=== PATIENT | male | born 1970 | race Caucasian/White ===

== ENCOUNTER 2016-05-21 10:51 | Emergency (ER) | payer BC, OTHER ==
[2016-05-21 10:59] VITALS: BP 140/91; PULSE 76; TEMP 97.8; BMI 30.7
[2016-05-21] MEDS ORDERED: ALBUTEROL SO4 0.083% IH SOL 2.5 MG/3 ML VIAL.NEB. NEB ONE ×2 (12:17→12:18)
--- NOTE | 2016-05-21 12:40 | PDOC ---
History of Present Illness - General Chief Complaint: Respiratory Stated Complaint: cough/sore throat Time Seen by Provider: 05/21/16 11:59 History Source: Patient, Primary Care Provider Exam Limitations: No Limitations - History of Present Illness Initial Comments: 05/21/16 12:35 CC cough and congestion with fever x 4 days Timing/Duration: denies: just prior to arrival Severity: denies: mild Possible Cause: Yes: allergen exposure, irritant gases exposure. No: no prior episodes Past History - Past Medical History Allergies/Adverse Reactions: Allergies Allergy/AdvReac Type Severity Reaction Status Date / Time No Known Allergies Allergy Verified 05/21/16 10:55 Home Medications: Ambulatory Orders Unobtainable Home Med List 0 dose .ROUTE UTDICT 01/28/12 Clonazepam [Klonopin] 1 mg PO BID 03/19/12 Enoxaparin [Lovenox -] 40 mg SQ DAILY 03/19/12 Oxycodone HCl/Acetaminophen [Percocet 10-325 mg Tablet] 1 - 2 tab PO Q4H Ibuprofen [Motrin -] 600 mg PO TID #21 tablet 03/20/13 Oxycodone HCl/Acetaminophen [Percocet 5-325 mg Tablet -] 1 - 2 tab PO Q6H #14 tablet 03/20/13 HTN: Yes Hypercholesterolemia: Yes - Immunization History Immunization Up to Date: Yes - Psycho/Social/Smoking Cessation Hx Anxiety: No Suicidal Ideation: No Smoking Status: No Smoking History: Former smoker Have you smoked in the past 12 months: No Number of Cigarettes Smoked Daily: 0 Cigars Per Day: 0 Information on smoking cessation initiated: No Hx Alcohol Use: Yes Substance Use Type: None Respiratory Specific PMHX - Complaint Specific PMHX Angina: No Pulmonary Embolus: No Review of Systems - Review of Systems Constitutional: Yes: Fever, Malaise. No: Chills HEENTM: Yes: Nose Congestion, Throat Swelling Respiratory: Yes: Symptoms reported, Cough, Wheezing Cardiac (ROS): Yes: Symptoms Reported ABD/GI: Yes: Symptoms Reported *Physical Exam - Vital Signs Last Vital Signs Temp Pulse Resp BP Pulse Ox 97.8 F 76 19 140/91 98 05/21/16 10:55 05/21/16 10:55 05/21/16 10:55 05/21/16 10:55 05/21/16 10:55 - Physical Exam General Appearance: Yes: Appropriately Dressed. No: Apparent Distress HEENT: positive: TMs Normal, Pharynx Normal, Tonsillar Erythema, Nasal Congestion, Rhinorrhea. negative: TM Bulging, TM Dull Neck: positive: Supple, Lymphadenopathy (R), Lymphadenopathy (L). negative: Tender, Rigid Respiratory/Chest: positive: Lungs Clear, Accessory Muscle Use Cardiovascular: positive: Regular Rhythm ED Treatment Course - Medications Given in the ED: ED Medications Discontinued Medications Generic Name Dose Route Start Last Admin Trade Name Freq PRN Reason Stop Dose Admin Albuterol Sulfate 1 amp 05/21/16 12:18 05/21/16 12:26 Ventolin 0.083% Nebulizer Soln - NEB 05/21/16 12:19 1 amp ONCE ONE Administration Medical Decision Making - Medical Decision Making 05/21/16 12:38 treated with Zithromax and albuterol *DC/Admit/Observation/Transfer Diagnosis at time of Disposition: Acute bronchitis with bronchospasm - Discharge Dispostion Disposition: HOME Condition at time of disposition: Stable Admit: No - Patient Instructions Additional Instructions: please see dr cochran if no better 1 week
== END 2016-05-21 12:45 | disposition home or self-care (01) ==
LOC: JERFT 10:51
PROC: 3E0F7GC Introduction of Other Therapeutic Substance into Respiratory Tract, Via Natural or Artificial Opening (ICD-10-PCS; principal; 2016-05-21)
DX: J20.9 Acute bronchitis, unspecified (principal)
CPT/HCPCS: 99281-25

== ENCOUNTER 2017-05-20 16:23 | Emergency (ER) | payer OTHER ==
[2017-05-20] MEDS ORDERED: ACETAMINOPHEN 325 MG TABLET (FP) PO ONE (16:44)
--- NOTE | 2017-05-20 16:44 | PDOC ---
Rapid Medical Evaluation Time Seen by Provider: 05/20/17 16:39 Medical Evaluation: Allergies Allergy/AdvReac Type Severity Reaction Status Date / Time No Known Allergies Allergy Verified 05/21/16 10:55 05/20/17 16:39 The patient presents with a chief complaint of: Cough and chest pain for four days. Reproducible chest pain, worse with deep breath or coughing. Productive cough. Denies fevers. Admits to body aches, headaches, chills, sore throat. I have performed a brief in-person evaluation of this patient; Pertinent physical exam findings: ambulatory, in no respiratory distress. CTAB, RRR I have ordered the following: EKG, Tyelenol The patient will proceed to the ED for further evaluation.
[2017-05-20 16:46] VITALS: BP 127/79; PULSE 91; TEMP 98; BMI 40.2
[2017-05-20] MEDS ORDERED: ALBUTEROL SO4 2.5/IPRATROPIUM 0.5 INH SOL 3 ML VIAL.NEB. NEB ONE ×3 (17:06→17:41)
--- NOTE | 2017-05-20 17:09 | PDOC ---
History of Present Illness - General Chief Complaint: Cold Symptoms Stated Complaint: COLD SYMPTOMS Time Seen by Provider: 05/20/17 16:39 History Source: Patient Exam Limitations: No Limitations - History of Present Illness Initial Comments: 05/20/17 17:07 c/o cough for one week with productive phlegm. no fever no sore throat no abd pain. non smoker no PMHX. daughter home with similair symptoms. Severity: reports: mild Past History - Past Medical History Allergies/Adverse Reactions: Allergies Allergy/AdvReac Type Severity Reaction Status Date / Time No Known Allergies Allergy Verified 05/20/17 16:40 Home Medications: Ambulatory Orders Unobtainable Home Med List 0 dose .ROUTE UTDICT 01/28/12 Clonazepam [Klonopin] 1 mg PO BID 03/19/12 Enoxaparin [Lovenox -] 40 mg SQ DAILY 03/19/12 Oxycodone HCl/Acetaminophen [Percocet 10-325 mg Tablet] 1 - 2 tab PO Q4H Ibuprofen [Motrin -] 600 mg PO TID #21 tablet 03/20/13 Oxycodone HCl/Acetaminophen [Percocet 5-325 mg Tablet -] 1 - 2 tab PO Q6H #14 tablet 03/20/13 Albuterol Sulfate Inhaler - [Ventolin HFA Inhaler -] 2 inh PO Q4H #1 inh Azithromycin [Zithromax -] 250 mg PO UTDICT #6 tab 05/21/16 Albuterol Sulfate Inhaler - [Ventolin HFA Inhaler -] 1 - 2 inh PO Q4H #1 inhaler 05/20/17 Azithromycin [Zithromax 250mg Tablets -] 250 mg PO UTDICT #6 tab 05/20/17 Prednisone [Deltasone] 20 mg PO DAILY #6 tablet 05/20/17 COPD: No HTN: Yes Hypercholesterolemia: Yes - Immunization History Immunization Up to Date: Yes - Suicide/Smoking/Psychosocial Hx Smoking Status: No Smoking History: Former smoker Have you smoked in the past 12 months: No Number of Cigarettes Smoked Daily: 0 Cigars Per Day: 0 Information on smoking cessation initiated: No Hx Alcohol Use: Yes Substance Use Type: None Respiratory Specific PMHX - Complaint Specific PMHX Angina: No Pulmonary Embolus: No Review of Systems - Review of Systems Able to Perform ROS?: Yes Is the patient limited Kinyarwanda proficient: No Constitutional: No: Symptoms Reported HEENTM: Yes: Symptoms Reported Respiratory: Yes: Symptoms reported, Cough *Physical Exam - Vital Signs Last Vital Signs Temp Pulse Resp BP Pulse Ox 98 F 91 H 19 127/79 97 05/20/17 16:40 05/20/17 16:40 05/20/17 16:40 05/20/17 16:40 05/20/17 16:40 - Physical Exam General Appearance: Yes: Nourished, Appropriately Dressed HEENT: positive: EOMI, YANELY, TMs Normal, Pharynx Normal Neck: positive: Supple. negative: Tender, Lymphadenopathy (R), Lymphadenopathy (L) Respiratory/Chest: positive: Lungs Clear, Normal Breath Sounds, Rhonchi. negative: Wheezing Cardiovascular: positive: Regular Rhythm, Regular Rate Gastrointestinal/Abdominal: positive: Normal Bowel Sounds, Soft Musculoskeletal: positive: Normal Inspection Extremity: positive: Normal Capillary Refill, Normal Inspection, Normal Range of Motion Integumentary: positive: Normal Color, Dry, Warm Neurologic: positive: Fully Oriented, Alert, Normal Mood/Affect, Normal Response , Motor Strength 5/5 ED Treatment Course - RADIOLOGY Radiology Studies Ordered: Category Date Time Status CHEST PA & LAT [RAD] Stat Radiology 05/20/17 17:06 Ordered - Medications Given in the ED: ED Medications Discontinued Medications Generic Name Dose Route Start Last Admin Trade Name Freq PRN Reason Stop Dose Admin Acetaminophen 650 mg 05/20/17 16:44 05/20/17 16:50 Tylenol - PO 05/20/17 16:45 650 mg ONCE ONE Administration Medical Decision Making - Medical Decision Making 05/20/17 17:09 cc: cough for one week with productive phlegm. non smoker, no fever no chills EKG done in triage pt denies shortness of breath will give duoneb and get CXR to r/o pneumonia non toxic stable vitals 05/20/17 17:20 *DC/Admit/Observation/Transfer Diagnosis at time of Disposition: Bronchitis, acute, with bronchospasm - Discharge Dispostion Disposition: HOME Condition at time of disposition: Good - Prescriptions Prescriptions: Albuterol Sulfate Inhaler - [Ventolin HFA Inhaler -] 1 - 2 inh PO Q4H #1 inhaler Azithromycin [Zithromax 250mg Tablets -] 250 mg PO UTDICT #6 tab Prednisone [Deltasone] 20 mg PO DAILY #6 tablet - Referrals - Patient Instructions Printed Discharge Instructions: DI for Acute Bronchitis Additional Instructions: drink pleanty of fluids rest at home take medications as directed please follow with your primary care doctor for follow up in 3-5 days return to ER for any worsening symptoms - Post Discharge Activity
== END 2017-05-20 18:09 | disposition home or self-care (01) ==
LOC: JERFT 16:23
PROC: 3E0F7GC Introduction of Other Therapeutic Substance into Respiratory Tract, Via Natural or Artificial Opening (ICD-10-PCS; principal; 2017-05-20)
PROC: 3E0F7GC Introduction of Other Therapeutic Substance into Respiratory Tract, Via Natural or Artificial Opening (ICD-10-PCS; 2017-05-20)
DX: J20.9 Acute bronchitis, unspecified (principal); I10 Essential (primary) hypertension; E78.00 Pure hypercholesterolemia, unspecified; Z87.891 Personal history of nicotine dependence
CPT/HCPCS: 71046-TC-FY; 99281-25

== ENCOUNTER 2017-10-10 14:43 | Emergency (ER) | payer OTHER ==
[2017-10-10 14:48] VITALS: BP 115/87; PULSE 91; TEMP 98.7; BMI 36.6
[2017-10-10] MEDS ORDERED: TETANUS AND DIPHTHERIA TOXOID 0.5 ML DISP.SYRIN IM ONE (16:06)
--- NOTE | 2017-10-10 16:12 | PDOC ---
History of Present Illness - General Chief Complaint: Bite Stated Complaint: DOG BITE Time Seen by Provider: 10/10/17 15:28 History Source: Patient Exam Limitations: Clinical Condition - History of Present Illness Initial Comments: 10/10/17 16:07 Patient present with complains of dog bite to left ear, left 4th finger and right back of hand when trying to wrestle with the neighbor's dog whiles drank yesterday. report dog bit of tip of left ear off and was bleeding but was too drank to seek medical attention and now bleeding anymore. report back of hand swelling upon wake this AM around laceration to back of hand. pt report dog is up to date on vaccine but unsure of his last tetanus vaccine 10/10/17 16:26 Timing/Duration: 24 hours Severity: mild Modifying Factors: improves with: other (none) Associated Symptoms: denies: chest pain, diaphoresis, fever/chills, headaches, nausea/vomiting, seizure, shortness of breath Aspirin Received prior to arrival: Yes: no aspirin today Past History - Past Medical History Allergies/Adverse Reactions: Allergies Allergy/AdvReac Type Severity Reaction Status Date / Time No Known Allergies Allergy Verified 10/10/17 14:51 Home Medications: Ambulatory Orders Amox-Tr/K Cl [Augmentin - 875Mg Tablet] 1 tab PO BID #14 tablet 10/10/17 Ibuprofen 800 mg PO TID PRN #20 tablet 10/10/17 Mupirocin Ointment [Bactroban 2% Ointment -] 1 applic TP BID #1 tube 10/10/17 COPD: No HTN: Yes Hypercholesterolemia: Yes - Immunization History Immunization Up to Date: Yes - Suicide/Smoking/Psychosocial Hx Smoking Status: No Smoking History: Never smoked Have you smoked in the past 12 months: No Number of Cigarettes Smoked Daily: 0 Cigars Per Day: 0 Information on smoking cessation initiated: No Hx Alcohol Use: No Drug/Substance Use Hx: No Substance Use Type: None Review of Systems - Review of Systems Able to Perform ROS?: Yes Is the patient limited B[place]ian proficient: No Constitutional: No: Symptoms Reported, Chills, Diaphoresis, Fever, Loss of Appetite, Malaise, Night Sweats, Weakness, Weight Stable, Unintentional Wgt. Loss, Unexplained wgt Loss, Other HEENTM: Yes: Other (partial avulsion from dog bite to left lower earlobe). No: Eye Pain, Blurred Vision, Tearing, Recent change in vision, Double Vision, Cataracts, Ear Pain, Ocular Prothesis, Ear Discharge, Nose Pain, Nose Congestion , Tinnitus, Nose Bleeding, Hearing Loss, Throat Pain, Throat Swelling, Mouth Pain, Dental Problems, Difficulty Swallowing, Mouth Swelling Respiratory: No: Cough, Orthopnea, Shortness of Breath, SOB with Exertion, SOB at Rest, Stridor, Wheezing, Productive cough, Hemoptysis, Other Cardiac (ROS): No: Chest Pain, Edema, Irregular Heart Rate, Lightheadedness, Palpitations, Syncope, Chest Tightness, Other ABD/GI: No: Abdominal Distended, Abd. Pain w/ defecation, Blood Streaked Bowels , Constipated, Diarrhea, Difficulty Swallowing, Nausea, Poor Appetite, Poor Fluid Intake, Rectal Bleeding, Vomiting, Indigestion, Abdominal cramping, Tarry Stools, Other Musculoskeletal: No: Back Pain, Gout, Joint Pain, Joint Swelling, Muscle Pain, Muscle Weakness, Neck Pain, Joint Stiffness, Other Integumentary: Yes: Other (laceration to back of right hand, left 4th finger and complete avulsion of partial lower left earlobe) Neurological: No: Headache, Numbness, Paresthesia, Pre-Existing Deficit, Seizure , Tingling, Tremors, Weakness, Unsteady Gait, Ataxia, Dizziness, Other Hematologic/Lymphatic: No: Blood Clots, Easy Bruising All Other Systems: Reviewed and Negative *Physical Exam - Vital Signs Last Vital Signs Temp Pulse Resp BP Pulse Ox 98.7 F 91 H 18 115/87 99 10/10/17 14:44 10/10/17 14:44 10/10/17 14:44 10/10/17 14:44 10/10/17 14:44 - Physical Exam General Appearance: Yes: Nourished, Appropriately Dressed. No: Apparent Distress HEENT: positive: EOMI, YANELY, Normal Voice, TMs Normal, Pharynx Normal, Other ( complete avulsion off lower left earlobe from bite with dried blood to wound . no active bleeding ) Neck: positive: Trachea midline, Supple Respiratory/Chest: positive: Lungs Clear, Normal Breath Sounds. negative: Respiratory Distress, Accessory Muscle Use Cardiovascular: positive: Regular Rhythm, Regular Rate, S1, S2 Gastrointestinal/Abdominal: positive: Normal Bowel Sounds, Soft Musculoskeletal: negative: CVA Tenderness, Muscle Spasm Extremity: positive: Normal Capillary Refill Integumentary: positive: Other (3cm lacaeration to dorsal aspect of right hand over 2nd and 3rd metacarpals. small 1cm laceration to dorsal aspect of proximal left 4th finger . complete avulsion of left lower earlobe from bite ) Neurologic: positive: Fully Oriented, Normal Mood/Affect, Normal Response Procedures - Laceration/Wound Repair Right Posterior Distal Dorsal Hand Wound Explored: no foreign body present Wound's Depth, Shape: superficial Irrigated w/ Saline: Yes Betadine Prep: Yes Anesthesia: 1% Lidocaine Amount of Anesthetic (ccs): 2 Wound Debrided: minimal Wound Repaired With: Sutures Suture Size/Type: 4:0, nylon Number of Sutures: 3 Layer Closure: No Sterile Dressing Applied: Yes Splint Applied: No Sling Applied: No Progress: 10/10/17 16:34 3cm superficial wound cleaned with betadine and hydrogen peroxide. wound irrigated with normal saline. wound infiltrated with 2cc 1% lidocaine. wound closed with 3 interrupted 4'O nylon sutures. bacitracin applied to wound. wound covered with adhesive bandage Left Posterior Proximal Dorsal Finger 4th digit Wound Explored: no foreign body present Wound's Depth, Shape: superficial, linear Irrigated w/ Saline: Yes Betadine Prep: Yes Wound Repaired With: Steri-strips, Dermabond Sterile Dressing Applied: Yes Splint Applied: No Sling Applied: No Progress: 10/10/17 16:37 1cm superficial wound to proximal phalange of left 4th finger cleaned with betadine and hydrogen peroxide. wound closed with dermabond. wound covered with adhesive bandage. Patient tolerated procedure well Medical Decision Making - Medical Decision Making 10/10/17 16:39 Patient presenting with multiple lacerations from dog bite due to provocking dog while drank. wound care done. tetanus vaccine given. Rx Augmentin for infection prophylaxis. follow-up in 5 days for wound check/ suture removal *DC/Admit/Observation/Transfer Diagnosis at time of Disposition: Dog bite Qualifiers: Encounter type: initial encounter Qualified Code(s): W54.0XXA - Bitten by dog, initial encounter Laceration of left earlobe Qualifiers: Encounter type: initial encounter Qualified Code(s): S01.312A - Laceration without foreign body of left ear, initial encounter Laceration of right hand Qualifiers: Encounter type: initial encounter Foreign body presence: without foreign body Qualified Code(s): S61.411A - Laceration without foreign body of right hand, initial encounter - Discharge Dispostion Disposition: HOME Condition at time of disposition: Good Decision to Admit order: No - Prescriptions Prescriptions: Amox-Tr/K Cl [Augmentin - 875Mg Tablet] 1 tab PO BID #14 tablet Ibuprofen 800 mg PO TID PRN #20 tablet PRN Reason: Pain Mupirocin Ointment [Bactroban 2% Ointment -] 1 applic TP BID #1 tube - Referrals Referrals: Kika Brown MD [Primary Care Provider] - - Patient Instructions Printed Discharge Instructions: DI for Animal Bites Additional Instructions: take medication as prescribed. follow-up in 5 days for wound check and suture removal or earlier if worsening swelling or symptoms - Post Discharge Activity
== END 2017-10-10 16:15 | disposition home or self-care (01) ==
LOC: JERFT 14:43 → JER 14:43 → JERFT 16:15
PROC: 3E0234Z Introduction of Serum, Toxoid and Vaccine into Muscle, Percutaneous Approach (ICD-10-PCS; principal; 2017-10-10)
PROC: 0HQGXZZ Repair Left Hand Skin, External Approach (ICD-10-PCS; 2017-10-10)
PROC: 0HQ3XZZ Repair Left Ear Skin, External Approach (ICD-10-PCS; 2017-10-10)
DX: S60.572A Other superficial bite of hand of left hand, initial encounter (principal); S60.475A Other superficial bite of left ring finger, initial encounter; S00.472A Other superficial bite of left ear, initial encounter; W54.0XXA Bitten by dog, initial encounter; Y93.K9 Activity, other involving animal care; Y92.098 Other place in other non-institutional residence as the place of occurrence of the external cause; Y99.8 Other external cause status
CPT/HCPCS: 12002-25; 12011; 90471; 99281-25

== ENCOUNTER 2018-02-16 02:23 | Emergency (ER) | payer OTHER ==
[2018-02-16 02:40] VITALS: BP 138/84; PULSE 89; TEMP 98.2; BMI 35.5
[2018-02-16] MEDS ORDERED: ALBUTEROL SO4 2.5/IPRATROPIUM 0.5 INH SOL 3 ML VIAL.NEB. NEB ONE ×2 (02:50→02:51)
--- NOTE | 2018-02-16 02:51 | PDOC ---
History of Present Illness - General Chief Complaint: Respiratory Stated Complaint: DIFF BREATHING Time Seen by Provider: 02/16/18 02:40 History Source: Patient Exam Limitations: No Limitations - History of Present Illness Initial Comments: 02/16/18 04:36 Patient is a 47-year-old male with no past medical history who presents to the emergency department for 3 days of cough, congestion and chest pressure. Patient states that the coughing woke him up this evening. He states that the chest pressure is worse when coughing. Denies fevers, chills, sore throat, earache, difficulty breathing, chest pain, palpitations, nausea, vomiting and diarrhea. Past History - Travel Traveled outside of the country in the last 30 days: No Close contact w/someone who was outside of country & ill: No - Past Medical History Allergies/Adverse Reactions: Allergies Allergy/AdvReac Type Severity Reaction Status Date / Time No Known Allergies Allergy Verified 02/16/18 02:39 Home Medications: Ambulatory Orders Amox-Tr/K Cl [Augmentin - 875Mg Tablet] 1 tab PO BID #14 tablet 10/10/17 Ibuprofen 800 mg PO TID PRN #20 tablet 10/10/17 Mupirocin Ointment [Bactroban 2% Ointment -] 1 applic TP BID #1 tube 10/10/17 Albuterol Sulfate Inhaler - [Ventolin HFA Inhaler -] 1 - 2 inh PO Q4H #1 inhaler 02/16/18 Guaifenesin [Robitussin] 100 mg PO Q6H #200 ml 02/16/18 Methylprednisolone [Medrol Dose Otf] 4 mg PO ASDIR #21 tablet 02/16/18 COPD: No HTN: Yes Hypercholesterolemia: Yes - Immunization History Immunization Up to Date: Yes - Suicide/Smoking/Psychosocial Hx Smoking Status: No Smoking History: Never smoked Have you smoked in the past 12 months: No Number of Cigarettes Smoked Daily: 0 Cigars Per Day: 0 Information on smoking cessation initiated: No Hx Alcohol Use: No Drug/Substance Use Hx: No Substance Use Type: None Review of Systems - Review of Systems Able to Perform ROS?: Yes Comments:: 02/16/18 02:50 CONSTITUTIONAL: Absent: fever, chills, diaphoresis, generalized weakness, malaise, loss of appetite HEENT: Present: nasal congestion Absent: rhinorrhea, throat pain, throat swelling, difficulty swallowing, mouth swelling, ear pain, eye pain, visual Changes CARDIOVASCULAR: Absent: chest pain, loss of consciousness, palpitations, irregular heart rate, peripheral edema RESPIRATORY: Present: productive cough, chest pressure Absent: cough, shortness of breath, dyspnea with exertion, orthopnea, wheezing, stridor, hemoptysis GASTROINTESTINAL: Absent: abdominal pain, abdominal distension, nausea, vomiting, diarrhea, constipation, melena, hematochezia GENITOURINARY: Absent: dysuria, frequency, urgency, hesitancy, hematuria, flank pain, genital pain MUSCULOSKELETAL: Absent: myalgia, arthralgia, joint swelling SKIN: Absent: rash, itching, pallor HEMATOLOGIC/IMMUNOLOGIC: Absent: easy bleeding, easy bruising, lymphadenopathy, frequent infections ENDOCRINE: Absent: unexplained weight gain, unexplained weight loss, heat intolerance, cold intolerance NEUROLOGIC: Absent: headache, focal weakness or paresthesias, dizziness, unsteady gait, seizure, mental status changes, bladder or bowel incontinence PSYCHIATRIC: Absent: anxiety, depression, suicidal or homicidal ideation, hallucinations. Is the patient limited [place] Zealander proficient: No *Physical Exam - Vital Signs Last Vital Signs Temp Pulse Resp BP Pulse Ox 98.2 F 89 19 138/84 97 02/16/18 02:38 02/16/18 02:38 02/16/18 02:38 02/16/18 02:38 02/16/18 02:38 - Physical Exam Comments: 02/16/18 04:22 GENERAL: Well developed, well nourished. Awake and alert. No acute distress. HEENT: Normocephalic, atraumatic. PERRLA, EOMI. No conjunctival pallor. Sclera are non- icteric. Moist mucous membranes. Oropharynx is clear. NECK: Supple. Full ROM. No JVD. Carotid pulses 2+ and symmetric, without bruits. No thyromegaly. No lymphadenopathy. CARDIOVASCULAR: Regular rate and rhythm. No murmurs, rubs, or gallops. Distal pulses are 2+ and symmetric. PULMONARY: No evidence of respiratory distress. Lungs clear to auscultation bilaterally. No wheezing, rales or rhonchi. ABDOMINAL: Soft. Non-tender. Non-distended. No rebound or guarding. No organomegaly. Normoactive bowel sounds. MUSCULOSKELETAL Normal range of motion at all joints. No bony deformities or tenderness. No CVA tenderness. EXTREMITIES: No cyanosis. No clubbing. No edema. No calf tenderness. SKIN: Warm and dry. Normal capillary refill. No rashes. No jaundice. NEUROLOGICAL: Alert, awake, appropriate. Cranial nerves 2-12 intact. No deficits to light touch and temperature in face, upper extremities and lower extremities. No motor deficits in the in face, upper extremities and lower extremities. Normoreflexic in the upper and lower extremities. Normal speech. Toes are down- going bilaterally. Gait is normal without ataxia. PSYCHIATRIC: Cooperative. Good eye contact. Appropriate mood and affect. Medical Decision Making - Medical Decision Making 02/16/18 04:37 Patient is a 47-year-old male no past medical history who presents to the emergency department today for 3 days of chest congestion and cough. On exam patient with lung sounds clear to auscultation bilaterally with fair aeration of the bases. Cough is wet sounding on exam. Chest x-ray is negative for pneumonia. EKG: Rate 88 bpm, NSR, normal intervals, normal axis, no acute ST-T wave changes. Overall normal EKG. Patient improved with DuoNeb in the emergency department states his chest pressure is resolved. Most likely a viral bronchitis. Discharge home with albuterol, steroids and cough syrup. Patient follow up with his primary care doctor this week. I discussed the physical exam findings, ancillary test results and final diagnoses with the patient. I answered all of the patient's questions. The patient was satisfied with the care received and felt comfortable with the discharge plan and treatment plan. The Patient agrees to follow up with the primary care physician/specialist within 24-72 hours. Return precautions were given. *DC/Admit/Observation/Transfer Diagnosis at time of Disposition: Bronchitis, acute, with bronchospasm - Discharge Dispostion Condition at time of disposition: Fair Decision to Admit order: No - Prescriptions Prescriptions: Albuterol Sulfate Inhaler - [Ventolin HFA Inhaler -] 1 - 2 inh PO Q4H #1 inhaler Guaifenesin [Robitussin] 100 mg PO Q6H #200 ml Methylprednisolone [Medrol Dose Otf] 4 mg PO ASDIR #21 tablet - Referrals Referrals: Kika Brown MD [Primary Care Provider] - - Patient Instructions Printed Discharge Instructions: DI for Acute Bronchitis Additional Instructions: You have bronchitis most likely from a virus. Please take the prednisone dose pack as prescribed. Use the albuterol inhaler every 4 hours as needed for cough or chest tightness. He may take the Robitussin every 6 hours as needed for cough. Drink plenty of fluids and get plenty of rest. Please follow up with her primary care doctor this week. Return to emergency department for chest pain, difficulty breathing, loss of consciousness, or any new or worsening symptoms. - Post Discharge Activity Forms/Work/School Notes: Back to Work
--- NOTE | 2018-02-16 03:09 | PDOC ---
*Physical Exam - Vital Signs Last Vital Signs Temp Pulse Resp BP Pulse Ox 98.2 F 89 19 138/84 97 02/16/18 02:38 02/16/18 02:38 02/16/18 02:38 02/16/18 02:38 02/16/18 02:38 ED Treatment Course - Medications Given in the ED: ED Medications Discontinued Medications Generic Name Dose Route Start Last Admin Trade Name Freq PRN Reason Stop Dose Admin Albuterol/Ipratropium 1 amp 02/16/18 02:51 02/16/18 03:01 Duoneb - NEB 02/16/18 02:52 1 amp ONCE ONE Administration Medical Decision Making - Medical Decision Making 02/16/18 03:09 Pt seen by the Advanced Practice Provider under my direct supervision Ancillary studies reviewed I agree with plan as outlined by the Advanced Practice Provider ADAM Moreno *DC/Admit/Observation/Transfer - Discharge Dispostion Condition at time of disposition: Fair - Referrals Referrals: Kika Brown MD [Primary Care Provider] - - Patient Instructions - Post Discharge Activity
--- NOTE | 2018-02-16 15:40 | EKG ---
Test Reason : Blood Pressure : / mmHG Vent. Rate : 088 BPM Atrial Rate : 088 BPM P-R Int : 178 ms QRS Dur : 096 ms QT Int : 376 ms P-R-T Axes : 043 030 038 degrees QTc Int : 454 ms NORMAL SINUS RHYTHM NORMAL ECG WHEN COMPARED WITH ECG OF 28-JAN-2012 14:11, NO SIGNIFICANT CHANGE WAS FOUND Confirmed by THOMAS BIRD MD ([id number]) on 02/16/2018 3:40:15 PM Referred By: Confirmed By:THOMAS BIRD MD
== END 2018-02-16 04:46 | disposition home or self-care (01) ==
LOC: JER 02:23
PROC: 3E0F7GC Introduction of Other Therapeutic Substance into Respiratory Tract, Via Natural or Artificial Opening (ICD-10-PCS; principal; 2018-02-16)
DX: J20.9 Acute bronchitis, unspecified (principal)
CPT/HCPCS: 71046-TC-FY; 93005; 93010; 99281-25; 99283-25

== ENCOUNTER 2018-05-19 14:25 | Emergency (ER) | payer OTHER ==
[2018-05-19 14:37] VITALS: BP 120/85; PULSE 87; TEMP 97.9; BMI 38.1
--- NOTE | 2018-05-19 15:15 | PDOC ---
History of Present Illness <Nikki Price - Last Filed: 05/19/18 15:44> - General History Source: Patient Exam Limitations: No Limitations <Natalia Moreno - Last Filed: 05/19/18 15:53> - General Chief Complaint: Pain Stated Complaint: ELBOW PAIN , NOSE BLEED Time Seen by Provider: 05/19/18 14:52 Past History <Nikki Price - Last Filed: 05/19/18 15:44> - Travel Traveled outside of the country in the last 30 days: No Close contact w/someone who was outside of country & ill: No - Past Medical History COPD: No HTN: Yes Hypercholesterolemia: Yes - Immunization History Immunization Up to Date: Yes - Suicide/Smoking/Psychosocial Hx Smoking Status: No Smoking History: Current some day smoker Have you smoked in the past 12 months: No Number of Cigarettes Smoked Daily: 0 Cigars Per Day: 0 Information on smoking cessation initiated: No Hx Alcohol Use: No Drug/Substance Use Hx: No Substance Use Type: None <Natalia Moreno - Last Filed: 05/19/18 15:53> - Past Medical History Allergies/Adverse Reactions: Allergies Allergy/AdvReac Type Severity Reaction Status Date / Time No Known Allergies Allergy Verified 02/16/18 02:39 Home Medications: Ambulatory Orders Albuterol Sulfate Inhaler - [Ventolin HFA Inhaler -] 1 - 2 inh PO Q4H #1 inhaler 02/16/18 Guaifenesin [Robitussin] 100 mg PO Q6H #200 ml 02/16/18 Methylprednisolone [Medrol Dose Otf] 4 mg PO ASDIR #21 tablet 02/16/18 Review of Systems - Review of Systems Able to Perform ROS?: Yes Comments:: 05/19/18 15:14 CONSTITUTIONAL: Absent: fever, chills, diaphoresis, generalized weakness, malaise, loss of appetite HEENT: Absent: rhinorrhea, nasal congestion, throat pain, throat swelling, difficulty swallowing, mouth swelling, ear pain, eye pain, visual Changes CARDIOVASCULAR: Absent: chest pain, loss of consciousness, palpitations, irregular heart rate, peripheral edema RESPIRATORY: Absent: cough, shortness of breath, dyspnea with exertion, orthopnea, wheezing, stridor, hemoptysis GASTROINTESTINAL: Absent: abdominal pain, abdominal distension, nausea, vomiting, diarrhea, constipation, melena, hematochezia GENITOURINARY: Absent: dysuria, frequency, urgency, hesitancy, hematuria, flank pain, genital pain MUSCULOSKELETAL: Absent: myalgia, arthralgia, joint swelling SKIN: Absent: rash, itching, pallor HEMATOLOGIC/IMMUNOLOGIC: Absent: easy bleeding, easy bruising, lymphadenopathy, frequent infections ENDOCRINE: Absent: unexplained weight gain, unexplained weight loss, heat intolerance, cold intolerance NEUROLOGIC: Absent: headache, focal weakness or paresthesias, dizziness, unsteady gait, seizure, mental status changes, bladder or bowel incontinence PSYCHIATRIC: Absent: anxiety, depression, suicidal or homicidal ideation, hallucinations. Is the patient limited Mauritanian proficient: No <Natalia Moreno - Last Filed: 05/19/18 15:53> *Physical Exam - Vital Signs Last Vital Signs Temp Pulse Resp BP Pulse Ox 97.9 F 87 18 120/85 98 05/19/18 14:35 05/19/18 14:35 05/19/18 14:35 05/19/18 14:35 05/19/18 14:35 <Nikki Price - Last Filed: 05/19/18 15:44> - Vital Signs Last Vital Signs Temp Pulse Resp BP Pulse Ox 97.9 F 87 18 120/85 98 05/19/18 14:35 05/19/18 14:35 05/19/18 14:35 05/19/18 14:35 05/19/18 14:35 - Physical Exam Comments: 05/19/18 15:14 GENERAL: Well developed, well nourished. Awake and alert. No acute distress. HEENT: Normocephalic, atraumatic. PERRLA, EOMI. No conjunctival pallor. Sclera are non- icteric. Moist mucous membranes. Oropharynx is clear. NECK: Supple. Full ROM. No JVD. Carotid pulses 2+ and symmetric, without bruits. No thyromegaly. No lymphadenopathy. CARDIOVASCULAR: Regular rate and rhythm. No murmurs, rubs, or gallops. Distal pulses are 2+ and symmetric. PULMONARY: No evidence of respiratory distress. Lungs clear to auscultation bilaterally. No wheezing, rales or rhonchi. ABDOMINAL: Soft. Non-tender. Non-distended. No rebound or guarding. No organomegaly. Normoactive bowel sounds. MUSCULOSKELETAL Normal range of motion at all joints. No bony deformities or tenderness. No CVA tenderness. EXTREMITIES: No cyanosis. No clubbing. No edema. No calf tenderness. SKIN: Warm and dry. Normal capillary refill. No rashes. No jaundice. NEUROLOGICAL: Alert, awake, appropriate. Cranial nerves 2-12 intact. No deficits to light touch and temperature in face, upper extremities and lower extremities. No motor deficits in the in face, upper extremities and lower extremities. Normoreflexic in the upper and lower extremities. Normal speech. Toes are down- going bilaterally. Gait is normal without ataxia. PSYCHIATRIC: Cooperative. Good eye contact. Appropriate mood and affect. <Natalia Moreno - Last Filed: 05/19/18 15:53> Moderate Sedation - Procedure Monitoring Vital Signs: Procedure Monitoring Vital Signs Temperature 97.9 F 05/19/18 14:35 Pulse Rate 87 05/19/18 14:35 Respiratory Rate 18 05/19/18 14:35 Blood Pressure 120/85 05/19/18 14:35 O2 Sat by Pulse Oximetry (%) 98 05/19/18 14:35 <Nikki Price - Last Filed: 05/19/18 15:44> - Procedure Monitoring Vital Signs: Procedure Monitoring Vital Signs Temperature 97.9 F 05/19/18 14:35 Pulse Rate 87 05/19/18 14:35 Respiratory Rate 18 05/19/18 14:35 Blood Pressure 120/85 05/19/18 14:35 O2 Sat by Pulse Oximetry (%) 98 05/19/18 14:35 <Natalia Moreno - Last Filed: 05/19/18 15:53> ED Treatment Course - Medications Given in the ED: ED Medications Discontinued Medications Generic Name Dose Route Start Last Admin Trade Name Freq PRN Reason Stop Dose Admin Ibuprofen 800 mg 05/19/18 15:16 05/19/18 15:23 Motrin - PO 05/19/18 15:17 800 mg ONCE ONE Administration <Nikki Price - Last Filed: 05/19/18 15:44> Medical Decision Making - Medical Decision Making 05/19/18 15:41 The patient was seen and evaluated in conjunction with midlevel provider under my direct supervision, ancillary studies were reviewed. I agree with the plan as outlined by ADAM Moreno. HPI, workup/dispo as outlined. NAD, VS wnl, reviewed left biceps tendon in place, mildly tender there at insertion site. mild tenderness, ROM intact, NVI, cap refill <2sec. likely biceps tendonitis. DC in stable condition. RICE and supportive care, otc analgesia 05/19/18 15:41 05/19/18 15:44 <DeeNikki Bain - Last Filed: 05/19/18 15:44> *DC/Admit/Observation/Transfer <DeeNikkigail Bain - Last Filed: 05/19/18 15:44> - Discharge Dispostion Decision to Admit order: No <Natalia Moreno - Last Filed: 05/19/18 15:53> Diagnosis at time of Disposition: Biceps tendonitis Qualifiers: Laterality: left Qualified Code(s): M75.22 - Bicipital tendinitis, left shoulder - Discharge Dispostion Disposition: HOME Condition at time of disposition: Stable - Referrals Referrals: Cj Warner MD [Staff Physician] - - Patient Instructions Printed Discharge Instructions: DI for Tendinitis Additional Instructions: You have tendonitis of your bicep muscle Avoid lifting more than 10 lbs Use ice to the area Take Motrin 800mg every 8 hours not to exceed 3,000mg a day Follow up with orthopedics. A referral has been provided for you Return to the ED for any new or worsening symptoms - Post Discharge Activity Forms/Work/School Notes: Back to Work
[2018-05-19] MEDS ORDERED: IBUPROFEN 400 MG TABLET (FP) PO ONE ×2 (15:16→15:19)
--- NOTE | 2018-05-20 11:44 | EKG ---
Test Reason : Blood Pressure : / mmHG Vent. Rate : 082 BPM Atrial Rate : 082 BPM P-R Int : 174 ms QRS Dur : 096 ms QT Int : 368 ms P-R-T Axes : 053 044 050 degrees QTc Int : 429 ms POOR DATA QUALITY, INTERPRETATION MAY BE ADVERSELY AFFECTED NORMAL SINUS RHYTHM NONSPECIFIC INTRAVENTRICULAR CONDUCTION DEFECT NORMAL ECG Confirmed by ALEX ROBLERO MD ([id number]) on 05/20/2018 11:44:30 AM Referred By: Confirmed By:ALEX ROBLERO MD
--- NOTE | 2018-05-22 22:12 | EKG ---
Test Reason : Blood Pressure : / mmHG Vent. Rate : 079 BPM Atrial Rate : 079 BPM P-R Int : 180 ms QRS Dur : 098 ms QT Int : 372 ms P-R-T Axes : 061 046 052 degrees QTc Int : 426 ms NORMAL SINUS RHYTHM NORMAL ECG WHEN COMPARED WITH ECG OF 19-MAY-2018 14:39, NO SIGNIFICANT CHANGE WAS FOUND Confirmed by OLIVA PEREZ MD ([id number]) on 05/22/2018 10:12:34 PM Referred By: Confirmed By:OLIVA PEREZ MD
== END 2018-05-19 16:01 | disposition home or self-care (01) ==
LOC: JER 14:25
DX: M75.22 Bicipital tendinitis, left shoulder (principal)
CPT/HCPCS: 93005; 93010; 99282-25

== ENCOUNTER 2019-12-07 15:17 | Emergency (ER) | payer OTHER ==
[2019-12-07 15:37] VITALS: BP 127/87; PULSE 88; TEMP 97; BMI 35.5
[2019-12-07] MEDS ORDERED: SILVER SULFADIAZINE 1% TOP CREAM 50 GM JAR TP ONE ×2 (16:05→16:08)
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
== END 2019-12-07 16:27 | disposition home or self-care (01) ==
LOC: JERFT 15:17
DX: T24.231A Burn of second degree of right lower leg, initial encounter (principal)
CPT/HCPCS: 99283-25

== ENCOUNTER 2020-12-24 16:03 | Emergency (ER) | payer OTHER ==
[2020-12-24 16:19] VITALS: BP 121/77; PULSE 84; TEMP 98.1; BMI 34.4
[2020-12-24] MEDS ORDERED: DIPHTH,PERTUSS(ACELL),TET 0.5 ML DISP.SYRIN IM ONE ×2 (17:14→17:17)
== END 2020-12-24 18:25 | disposition home or self-care (01) ==
LOC: JERFT 16:03 → JER 16:03 → JERFT 18:25
PROC: 3E0234Z Introduction of Serum, Toxoid and Vaccine into Muscle, Percutaneous Approach (ICD-10-PCS; principal; 2020-12-24)
DX: S20.412A Abrasion of left back wall of thorax, initial encounter (principal); S40.212A Abrasion of left shoulder, initial encounter; R07.81 Pleurodynia; V18.0XXA Pedal cycle driver injured in noncollision transport accident in nontraffic accident, initial encounter; Y93.55 Activity, bike riding
CPT/HCPCS: 71046-TC-FY; 71101-TC-LT-FY; 90471; 90715; 99284-25

== ENCOUNTER 2021-06-18 08:57 | Emergency (ER) | payer OTHER ==
[2021-06-18 09:06] VITALS: BP 146/96; PULSE 77; TEMP 97.2; BMI 35.5
== END 2021-06-18 10:23 | disposition home or self-care (01) ==
LOC: JER 08:57
DX: S39.012A Strain of muscle, fascia and tendon of lower back, initial encounter (principal); X50.0XXA Overexertion from strenuous movement or load, initial encounter
CPT/HCPCS: 99283-25